=== PATIENT | male | born 1970 | race Two or more races ===

== ENCOUNTER 2017-11-17 16:23 | Emergency (ER) | payer MEDICAID, OTHER ==
[~2017-11-17] VITALS: Ht 175.3 cm; Wt 72.6 kg
[~2017-11-17 16:23] MED LIST: AMLO5TAB13 PO; BACL20TA; GLAT20KI SC; HYDR-1421; PAXIL PO; POTA20PO13
[2017-11-17 17:35] LABS: Albumin 4.2 g/dL (3.4-5.0); Basophils # (auto) 0.1 uL; Basophils % (auto) 0.7 % (0.0-2.0); Calcium 8.4 mg/dL (8.5-10.1); Eosinophils # (auto) 0.1 uL; Eosinophils % (auto) 1.2 % (0.0-7.0); Hematocrit 41.8 % (41.0-53.0); Hemoglobin 14.2 g/dL (13.5-17.5); Lymphocytes % (auto) 11.3 % (10.0-50.0); Mean Corpuscular Hemoglobin 29.4 pg (28.0-32.0); Mean Corpuscular Volume 86.5 fL (80.0-100.0); Monocytes # (auto) 0.7 uL; Monocytes % (auto) 7.7 % (0.0-12.0); Neutrophils # (auto) 6.7 uL; Neutrophils % (auto) 79.1 % (37.0-80.0); Nucleated Red Blood Cells % 0.6 %; Platelet Count (auto) 190 10^3/uL (140-450); Potassium 3.8 mmol/L (3.5-5.1); Red Blood Cells 4.83 10^6/uL (4.5-5.90); Red Cell Distribution Width 14.4 % (11.8-14.3); White Blood Cell 8.5 10^3/uL (4.4-10.8)
[2017-11-17 17:37] LABS: BUN/Creatinine Ratio 16.1
[2017-11-17 17:39] LABS: Bilirubin, Total 0.9 mg/dL (0.2-1.0); Total Protein 7.4 g/dL (6.4-8.2)
[2017-11-17 17:42] LABS: Magnesium 2.4 mg/dL (1.6-2.6)
[2017-11-17] MEDS ORDERED: methylPREDNISolone SOD SUCC 125 MG/2 ML VL IV ONE (18:30)
[2017-11-17] MEDS ORDERED: LORazepam 2MG/ML-1ML VIAL IV ONE (18:30)
[2017-11-17 19:33] VITALS: BP 127/90
== END 2017-11-17 19:38 | disposition home or self-care (01) ==
LOC: ER 16:23 → EDBD 16:23 → ER 19:38
DX: G35 Multiple sclerosis (principal); I10 Essential (primary) hypertension; Z79.899 Other long term (current) drug therapy; Z90.49 Acquired absence of other specified parts of digestive tract
CPT/HCPCS: 36415; 80053; 83735; 84484; 85025; 93005; 94761; 96374; 99285; J2930